=== PATIENT | female | born 1990 | race African-American/Black ===

== ENCOUNTER 2023-03-23 11:20 | Emergency (ER) | payer BC ==
[~2023-03-23] VITALS: Ht 154.9 cm; Wt 106.6 kg
[2023-03-23 11:30] VITALS: TEMP 98.5; O2SAT 98
[2023-03-23 12:30] VITALS: BP 120/80; PULSE 95; RESP 16
[2023-03-23] MEDS ORDERED: KETOROLAC 60MG/2ML VIAL IM ONE (12:30)
[2023-03-23] MEDS ORDERED: T3 PO (13:13)
[2023-03-23] MEDS ORDERED: IBUP-2028 PO (13:13)
== END 2023-03-23 14:09 | disposition home or self-care (01) ==
LOC: ER 12:31
DX: M25.512 Pain in left shoulder (principal); Z98.890 Other specified postprocedural states
CPT/HCPCS: 99283; 73030; 96372; J1885

== ENCOUNTER 2023-10-16 11:35 | Emergency (ER) | payer BC, OTHER ==
[~2023-10-16] VITALS: Ht 165.1 cm; Wt 90.0 kg
[~2023-10-16 11:35] MED LIST: IBUP-2028 PO; T3 PO
[2023-10-16 11:39] VITALS: TEMP 98.1; O2SAT 97
[2023-10-16 12:27] LABS: CLARITY URINE CLEAR (CLEAR); COLOR URINE YELLOW (YELLOW); GLUCOSE URINE NEGATIVE (NEGATIVE); KETONES URINE NEGATIVE (NEGATIVE); LEUKOCYTE ESTERASE URINE NEGATIVE (NEGATIVE); NITRITE URINE NEGATIVE (NEGATIVE); OCCULT BLOOD URINE NEGATIVE (NEGATIVE); PH URINE 5.5 (4.5-8.0); PROTEIN URINE NEGATIVE (NEGATIVE); SPECIFIC GRAVITY URINE 1.027 (1.005-1.030); UROBILINOGEN URINE 0.2 E.U./dL (0.2-1.0)
[2023-10-16 13:18] LABS: HCG SCREEN POSITIVE
[2023-10-16 17:35] VITALS: BP 111/73; PULSE 78; RESP 18
== END 2023-10-16 15:34 | disposition home or self-care (01) ==
LOC: ER 12:09
DX: O26.891 Other specified pregnancy related conditions, first trimester (principal); M54.9 Dorsalgia, unspecified; Z3A.01 Less than 8 weeks gestation of pregnancy
CPT/HCPCS: 36415; 76801; 81003; 81025; 84702; 84703; 99284

== ENCOUNTER 2023-12-18 00:11 | Emergency (ER) | payer BC ==
[~2023-12-18] VITALS: Ht 154.9 cm; Wt 116.0 kg
[2023-12-18 00:23] VITALS: O2SAT 99
[2023-12-18] MEDS: METOCLOPRAMIDE HCL 10MG/2ML VIAL IV ONE (01:04)
[2023-12-18] MEDS: SODIUM CHLORIDE 0.9% 1,000 ML IV ONE (01:08)
[2023-12-18] MEDS: MAGNESIUM/ALUMINUM HYDROXIDE/SIMETHICONE 30ML UDC PO ONE (01:20)
[2023-12-18 01:45] LABS: BASOPHILS % 0.4 % (0.0-2.0); EOSINOPHILS % 1.8 % (0.0-5.0); HEMATOCRIT. 37.3 % (36.0-48.0); HEMOGLOBIN. 12.3 g/dL (12.0-16.0); LYMPHOCYTES % 12.2 % (20.0-50.0); MEAN CORPUSCULAR HEMOGLOBIN 29.3 pg (28.0-32.0); MEAN CORPUSCULAR HGB CONC 33.1 g/dL (31.0-37.0); MEAN CORPUSCULAR VOLUME 88.4 fL (81.0-99.0); MEAN PLATELET VOLUME 8.1 fl (7.4-10.4); MONOCYTES % 8.6 % (2.0-8.0); PLATELET 484 x1000/uL (130-400); RED BLOOD CELL COUNT 4.22 mill/uL (4.2-5.4); RED CELL DISTRIBUTION WIDTH 14.8 % (11.6-14.6); WHITE BLOOD COUNT 14.1 x1000/uL (4.5-11.0)
[2023-12-18 01:52] LABS: CHLORIDE 106 mEq/L (98-107); POTASSIUM 4.2 mEq/L (3.5-5.1); SODIUM 137 mEq/L (136-145)
[2023-12-18 01:53] LABS: CALCIUM 9.8 mg/dL (8.7-10.4); CARBON DIOXIDE 20 mEq/L (21-32)
[2023-12-18 01:58] LABS: CREATININE 0.7 mg/dL (0.6-1.0); GLUCOSE 115 mg/dL (70-105); UREA NITROGEN BLOOD 10 mg/dL (9-23)
[2023-12-18 02:00] LABS: ALANINE AMINOTRANSFERASE 9 IU/L (10-49); ALBUMIN 4.5 g/dL (3.2-4.8); ASPARTATE AMINOTRANSFERASE 24 IU/L (<34); BILIRUBIN TOTAL 0.4 mg/dL (0.1-1.0)
[2023-12-18 02:01] LABS: PROTEIN TOTAL 7.9 g/dL (6.0-8.3)
[2023-12-18 02:04] LABS: BILIRUBIN DIRECT < 0.1 mg/dL (<=3.0)
[2023-12-18 02:49] LABS: PROTHROMBIN TIME 11.4 sec (9.6-11.0)
[2023-12-18] MEDS: ACETAMINOPHEN 1000MG/100ML 100 ML IV NR (02:51)
[2023-12-18 03:19] VITALS: TEMP 98.5
[2023-12-18] MEDS ORDERED: MAG355OR21 MT (03:39)
[2023-12-18] MEDS ORDERED: METO-293 MT (03:39)
[2023-12-18] MEDS ORDERED: ACET-2708 MT (03:39)
[2023-12-18 04:01] VITALS: BP 117/66; PULSE 106; RESP 22
[2023-12-18 05:27] LABS: B-HCG QUANTITATIVE 96850 mIU/mL (<3)
== END 2023-12-18 04:05 | disposition home or self-care (01) ==
LOC: ER 00:11
DX: O26.891 Other specified pregnancy related conditions, first trimester (principal); R10.13 Epigastric pain; Z3A.13 13 weeks gestation of pregnancy
CPT/HCPCS: 80076; 80048; 84702; 83690; 85025; 85610; 36415; 76801; 93005; 96361; 96365; 96375; 99285; J2765; J7030; Z7610 ×2; J0131

== ENCOUNTER 2024-06-11 18:53 | Emergency (ER) | payer BC, OTHER ==
[~2024-06-11] VITALS: Ht 154.9 cm; Wt 122.5 kg
[~2024-06-11 18:53] MED LIST changes: +ACET-2708 MT; +MAG355OR21 MT; +METO-293 MT
[2024-06-11 18:59] VITALS: O2SAT 100
[2024-06-11 20:04] LABS: BASOPHILS % 0.7 % (0.0-2.0); EOSINOPHILS % 4.6 % (0.0-5.0); HEMATOCRIT. 31.1 % (36.0-48.0); HEMOGLOBIN. 10.5 g/dL (12.0-16.0); LYMPHOCYTES % 23.8 % (20.0-50.0); MEAN CORPUSCULAR HGB CONC 33.9 g/dL (31.0-37.0); MEAN CORPUSCULAR VOLUME 85.3 fL (81.0-99.0); MEAN PLATELET VOLUME 7.5 fl (7.4-10.4); MONOCYTES % 9.4 % (2.0-8.0); NEUTROPHILS % 61.5 % (40.0-76.0); PLATELET 536 x1000/uL (130-400); RED BLOOD CELL COUNT 3.64 mill/uL (4.2-5.4); RED CELL DISTRIBUTION WIDTH 15.7 % (11.6-14.6); WHITE BLOOD COUNT 9.4 x1000/uL (4.5-11.0)
[2024-06-11 20:11] LABS: CHLORIDE 108 mEq/L (98-107); POTASSIUM 4.7 mEq/L (3.5-5.1); SODIUM 140 mEq/L (136-145)
[2024-06-11 20:12] LABS: CARBON DIOXIDE 26 mEq/L (21-32)
[2024-06-11 20:13] LABS: CALCIUM 9.2 mg/dL (8.7-10.4)
[2024-06-11 20:17] LABS: CREATININE 0.9 mg/dL (0.6-1.0)
[2024-06-11 20:18] LABS: GLUCOSE 102 mg/dL (70-105); UREA NITROGEN BLOOD 18 mg/dL (9-23)
[2024-06-11 20:23] LABS: TROPONIN I HIGH SENSITIVITY < 4 ng/L (3.0-34)
[2024-06-11 20:28] LABS: HCG SCREEN POSITIVE
[2024-06-11 20:36] LABS: ALANINE AMINOTRANSFERASE 30 IU/L (10-49); ALBUMIN 3.7 g/dL (3.2-4.8); ASPARTATE AMINOTRANSFERASE 22 IU/L (<34); BILIRUBIN TOTAL 0.3 mg/dL (0.1-1.0); PROTEIN TOTAL 6.5 g/dL (6.0-8.3)
[2024-06-11 20:37] LABS: BILIRUBIN DIRECT < 0.1 mg/dL (<=3.0)
[2024-06-11] MEDS: MORPHINE SULFATE 4 MG/ML INJ (FOR IV/IM USE) IV ONE (22:53)
[2024-06-11] MEDS: ACETAMINOPHEN 1000MG/100ML 100 ML IV ONE (23:44)
[2024-06-12 01:04] LABS: CLARITY URINE CLEAR (CLEAR); COLOR URINE YELLOW (YELLOW); GLUCOSE URINE NEGATIVE (NEGATIVE); KETONES URINE NEGATIVE (NEGATIVE); LEUKOCYTE ESTERASE URINE NEGATIVE (NEGATIVE); NITRITE URINE NEGATIVE (NEGATIVE); OCCULT BLOOD URINE 3+ (NEGATIVE); PH URINE 6.5 (4.5-8.0); PROTEIN URINE NEGATIVE (NEGATIVE); SPECIFIC GRAVITY URINE 1.066 (1.005-1.030)
[2024-06-12 01:30] VITALS: BP 108/64; PULSE 85; RESP 19; TEMP 36.55848; O2SAT 98
[2024-06-12] MEDS: KETOROLAC 15MG/ML VIAL IV NR (02:27)
[2024-06-12] MEDS: CEFTRIAXONE 1GM/50ML 50 ML IV NR (02:28)
[2024-06-12] MEDS: METRONIDAZOLE 500 MG PREMIX 100 ML IV ONE (02:29)
[2024-06-12] MEDS: KETOROLAC 15MG/ML VIAL IV ONE (02:29)
[2024-06-12] MEDS: CEFTRIAXONE 1GM/50ML 50 ML IV ONE (02:29)
[2024-06-12 02:31] VITALS: BP 108/64; PULSE 85; RESP 19; TEMP 36.5848
[2024-06-12 02:48] LABS: SQUAMOUS EPITHELIAL CELL URINE FEW /lpf (RARE/1+)
[2024-06-12] MEDS: METRONIDAZOLE 500 MG PREMIX 100 ML IV NR (02:48)
[2024-06-12 02:49] LABS: BACTERIA URINE NONE SEEN
[2024-06-12 04:10] VITALS: BP 129/75; PULSE 87; RESP 20; TEMP 36.72516; O2SAT 97
[2024-06-12] MEDS ORDERED: IOHEXOL-350 100 ML BOTTLE ONE (04:50)
== END 2024-06-12 19:28 | disposition left against medical advice (07) ==
LOC: ER 18:53 → EDBEDREQTM 06-12 00:30 → EDBEDREQ 06-12 00:30 → EDBEDREQDT 06-12 00:30 → UNDOADMIN 06-12 01:17 → 5WST 06-12 01:17 → UNDODISIN 06-12 08:30 → ER 06-12 19:28
DX: G89.18 Other acute postprocedural pain (principal); R07.89 Other chest pain; R06.02 Shortness of breath; Z88.5 Allergy status to narcotic agent; Z79.1 Long term (current) use of non-steroidal anti-inflammatories (NSAID)
CPT/HCPCS: 80076; 80048; 82962; 84703; 85025; 84484; 71045; 71275; 74177; 93970; 93005; 96365; 99285; 81003; 36415; 96367; 96375; A4663 ×2; Z7610 ×3; Q9967; J0696; J1885; J3490; A4606; J2270; J0131